=== PATIENT | female | born 1980 | race Caucasian/White ===

== ENCOUNTER 2022-09-16 11:48 | Observation (INO) | payer OTHER ==
[2022-09-16] VITALS (20 sets, daily range): BP systolic 101–142; BP diastolic 52–86
[~2022-09-16] VITALS: Ht 157.5 cm; Wt 72.9 kg
[2022-09-16 12:21] LABS: HEMATOCRIT 42.8 % (37.0-47.0); HEMOGLOBIN 14.9 g/dl (12.0-16.0); IMMATURE GRANULOCYTES 0.3 % (0.0-5.0); MEAN CELL VOLUME 84.9 fL CALC (80.0-100.0); MEAN CORPUSCULAR HGB 29.6 pG CALC (26.0-32.0); MEAN CORPUSCULAR HGB CONC 34.8 g/dL CAL (32.0-36.0); NEUT# 4.5 thou/uL (2.00-7.15); RED BLOOD COUNT 5.04 mill/uL (4.20-5.60); RED CELL DISTRI WIDTH 12.2 % (11.5-15.5)
[2022-09-16 12:37] LABS: PROTHROMBIN TIME 10.2 SECONDS (9.0-12.5)
[2022-09-16 12:42] LABS: ALBUMIN 5.1 g/dL (3.2-5.0); ALKALINE PHOSPHATASE 90 u/l (38-126); BILIRUBIN, TOTAL 0.5 mg/dL (0.0-1.4); BUN 18 mg/dL (7-17); BUN/CREATININE RATIO 23 (12-20 (CALC)); CHLORIDE 104 mmol/l (95-108); CREATININE 0.8 mg/dL (0.5-1.0); GFR FOR AFR.AMER. > 60 ML/MIN (>=60 (CALC)); GFR OTHER RACES > 60 ML/MIN (>=60 (CALC)); SGOT/AST 42 u/l (14-36); SODIUM 137 mmol/l (137-146); TOTAL PROTEIN 8.1 g/dL (6.3-8.2)
[2022-09-16 12:43] LABS: ANION GAP 13 (6-22 (CALC)); CARBON DIOXIDE 23 mmol/l (22-30); POTASSIUM 3.3 mmol/l (3.5-5.1)
[2022-09-16] MEDS ORDERED: LOSARTAN POTASS50 MG PO (13:01)
[2022-09-16] MEDS ORDERED: PRILOSEC20 MG/CAP PO (13:02)
[2022-09-16] MEDS ORDERED: WELLBUTRIN XL300 MG (13:02)
[2022-09-16] MEDS ORDERED: NORVASC10 M1 PO (13:02)
[2022-09-16 13:08] LABS: URINE BILIRUBIN - DIPSTICK NEGATIVE (NEGATIVE); URINE BLOOD DIPSTICK NEGATIVE (NEGATIVE); URINE COLOR YELLOW; URINE GLUCOSE - DIPSTICK NEGATIVE (NEGATIVE); URINE KETONE TRACE mg/dL (NEGATIVE); URINE LEUK ESTERASE NEGATIVE (NEGATIVE); URINE PH 6.5 (4.5-8.0); URINE PROTEIN - DIPSTICK NEGATIVE (NEG-TRACE); URINE UROBILINOGEN - DIPSTICK 0.2 E.U./dL (0.2)
[2022-09-16 13:16] LABS: URINE NITRITE - DIPSTICK NEGATIVE (Negative)
[2022-09-17] VITALS: BP 122/82
[2022-09-17 00:02] VITALS: BP 122/82
[2022-09-17 04:00] VITALS: BP 121/82
[2022-09-17 04:39] VITALS: BP 121/82
[2022-09-17 06:18] LABS: CHOLESTEROL HDL RATIO 5.9 (<4.4 (CALC))
[2022-09-17 07:06] VITALS: BP 129/55
[2022-09-17 11:34] VITALS: BP 119/76
[2022-09-17] MEDS ORDERED: ADLT ASA LOW81 MG PO (12:11)
== END 2022-09-17 13:01 | disposition home or self-care (01) | DRG 93 ==
LOC: ED 11:48 → ED-I 13:38 → ED 13:53 → ICU 13:54 → MS2 16:49
PROVIDERS: Family Medicine; ADMIT Internal Medicine; ATTEND Internal Medicine
DX: R20.0 Anesthesia of skin (principal); I10 Essential (primary) hypertension; E87.6 Hypokalemia; E66.3 Overweight; E78.5 Hyperlipidemia, unspecified
CPT/HCPCS: G0378; Q9967